=== PATIENT | female | born 1975 | race Asian ===

== ENCOUNTER 2016-10-13 13:49 | Outpatient (CLI) | payer BC ==
--- NOTE | 2016-10-13 14:54 | DIAGNOSTIC IMAGING REPORT ---
PROCEDURE: MG BILATERAL SCREENING W/CAD INDICATION: Screening. Family history breast carcinoma (mother, aunt). TECHNIQUE: Bilateral CC and MLO digital views. COMPARISON: Compared to 09/25/2015, 09/11/2014, and 08/11/2013. FINDINGS: Computer-aided detection applied. Moderately dense parenchymal pattern. There is 7 mm asymmetry in the upper central right breast (posterior third) which is only seen on the MLO view. IMPRESSION: 1. There is a 7 mm asymmetry in the upper central right breast (posterior third). While this may represent normal asymmetric parenchyma, underlying mass or architectural distortion should be considered. Further mammographic views (true lateral view, exaggerated CC view, reverse MLO view, and spot compression CC and MLO views are recommended). In addition, right breast ultrasound may be indicated (depending on mammographic results). RESULT CODE: 0- Incomplete; needs additional evaluation. A. A negative report should not delay biopsy if a dominant or clinically suspicious mass is present. 10-15% of cancers are not identified by x-ray. B. A negative report may reinforce clinical impression. C. Adenosis and dense breasts may obscure an underlying neoplasm. D. False positive reports average 6-10%. E.. A yearly screening mammogram is recommended. A reminder letter will be scheduled.
== END 2016-10-13 23:00 ==
LOC: MAM SRH 13:49
DX: Z12.31 Encounter for screening mammogram for malignant neoplasm of breast (principal); Z80.3 Family history of malignant neoplasm of breast

== ENCOUNTER 2016-10-23 14:00 | Outpatient (CLI) | payer BC ==
--- NOTE | 2016-10-23 17:01 | DIAGNOSTIC IMAGING REPORT ---
PROCEDURE: MG UNILATERAL DIAG-RT W/CAD INDICATION: F/U ABN ADAM TECHNIQUE: CC, MLO and true-lateral digital views of right breast. In addition, exaggerated CC, valley view, spot compression CC and MLO views were obtained of the right upper outer quadrant . Finally, high-resolution of the right breast ultrasound was performed (18 mHz). COMPARISON: Mammograms 10/13/2016, 09/25/2015 and 09/11/2014. FINDINGS: MAMMOGRAM: Computer-aided detection applied. The 7 mm asymmetry in the upper central right breast disappeared on the spot compression view was not confirmed on additional views. BREAST ULTRASOUND: Ultrasound of the right upper breast demonstrate no evidence of mass, cyst or abnormal shadowing. IMPRESSION: 1. Negative right mammogram and right breast ultrasound. Recommend follow-up 6-month right mammogram to confirm stability. 2. Results discussed with the patient RESULT CODE: 3- Probably benign. A. A negative report should not delay biopsy if a dominant or clinically suspicious mass is present. 10-15% of cancers are not identified by x-ray. B. A negative report may reinforce clinical impression. C. Adenosis and dense breasts may obscure an underlying neoplasm. D. False positive reports average 6-10%. E.. A yearly screening mammogram is recommended. A reminder letter will be scheduled.
== END 2016-10-23 23:00 ==
LOC: MAM SRH 14:00
DX: N64.89 Other specified disorders of breast (principal); R92.8 Other abnormal and inconclusive findings on diagnostic imaging of breast